=== PATIENT | female | born 1980 | race Caucasian/White ===

== ENCOUNTER → 2017-04-28 | Emergency (ER) | payer OTHER ==
[~2017-04-28] VITALS: Ht 157.5 cm; Wt 181.4 kg
[~2017-04-28] MED LIST: EFFEXOR XR150 MG; IMITREX; LISINOPRIL20 MG; OMEPRAZOLE10 MG; TOPAMAX15 MG; VOLTAREN100 GM; ZOFRAN4 MG
== END | disposition left against medical advice (07) ==
LOC: ER 13:23 → EDBD 13:29
DX: Z53.20 Procedure and treatment not carried out because of patient's decision for unspecified reasons (principal)